=== PATIENT | male | born 1980 | race African-American/Black ===

== ENCOUNTER 2018-05-14 19:51 | Emergency (ER) | payer BC, OTHER ==
[~2018-05-14] VITALS: Ht 185.4 cm; Wt 104.3 kg
[2018-05-14 20:04] VITALS: BP 137/76
[2018-05-14] MEDS ORDERED: ACETAMINOPHEN 500 MG TABLET PO ONE (20:30)
[2018-05-14] MEDS ORDERED: ONDANSETRON ODT 4 MG TAB.RAPDIS. PO ONE (20:30)
[2018-05-14] MEDS ORDERED: IBUPROFEN 400 MG TABLET. PO ONE (20:30)
[2018-05-14 20:56] LABS: INFLUENZA A PATIENT NEGATIVE (NEGATIVE); INFLUENZA B PATIENT NEGATIVE (NEGATIVE)
--- NOTE | 2018-05-14 21:56 | PHYS DOC ---
Past Medical History Past Medical History: No Pertinent History (ERIBERTO SMALLWOOD APRN) Past Surgical History: No Surgical History (ERIBERTO SMALLWOOD APRN) Alcohol Use: Occasionally Drug Use: None (ERIBERTO SMALLWOOD APRN) Adult General Chief Complaint Chief Complaint: COUGH HPI HPI Patient is a 38 year old male with no significant medical history who presents today to the ED complaining of fever, body aches, chills, symptoms began yesterday, he states he was seen at urgent care and was diagnosed with influenza , he states he was started on Tamiflu. He states he would like to be checked to make sure he doesn't have pneumonia today. (ERIBERTO SMALLWOOD APRN) Review of Systems Review of Systems Constitutional: Reports fever, body aches Eyes: Denies change in visual acuity, redness, or eye pain [] HENT: Denies nasal congestion or sore throat [] Respiratory: Reports cough, denies shortness of breath [] Cardiovascular: No additional information not addressed in HPI [] GI: Denies abdominal pain, nausea, vomiting, bloody stools or diarrhea [] : Denies dysuria or hematuria [] Musculoskeletal: Denies back pain or joint pain [] Integument: Denies rash or skin lesions [] Neurologic: Denies headache, focal weakness or sensory changes [] All other systems were reviewed and found to be within normal limits, except as documented in this note. (ERIBERTO SMALLWOOD APRN) Current Medications Current Medications Current Medications Medications (Trade) Dose Ordered Sig/Ruth Start Time Stop Time Status Last Admin Dose Admin Acetaminophen (Tylenol) 1,000 mg 1X ONCE 05/14/18 20:30 05/14/18 20:45 DC 05/14/18 20:49 1,000 MG Ibuprofen (Motrin) 800 mg 1X ONCE 05/14/18 20:30 05/14/18 20:45 DC 05/14/18 20:48 800 MG Ondansetron HCl (Zofran Odt) 4 mg 1X ONCE 05/14/18 20:30 05/14/18 20:45 DC 05/14/18 20:48 4 MG (TADEO MOLINA DO) Allergies Allergies Allergies Coded Allergies Type Severity Reaction Last Updated Verified hydrocodone Allergy Intermediate Nausea 05/14/18 Yes (TADEO MOLINA DO) Physical Exam Physical Exam Constitutional: Well developed, well nourished, no acute distress, non-toxic appearance. [] HENT: Normocephalic, atraumatic, bilateral external ears normal, oropharynx moist, no oral exudates, nose normal. [] Eyes: PERRLA, EOMI, conjunctiva normal, no discharge. [] Neck: Normal range of motion, no tenderness, supple, no stridor. [] Cardiovascular:Heart rate regular rhythm, no murmur [] Lungs & Thorax: Bilateral breath sounds clear to auscultation [] Abdomen: Bowel sounds normal, soft, no tenderness, no masses, no pulsatile masses. [] Skin: Warm, dry, no erythema, no rash. [] Back: No tenderness, no CVA tenderness. [] Extremities: No tenderness, no cyanosis, no clubbing, ROM intact, no edema. [] Neurologic: Alert and oriented X 3, normal motor function, normal sensory function, no focal deficits noted. [] Psychologic: Affect normal, judgement normal, mood normal. [] (ERIBERTO SMALLWOOD APRN) Current Patient Data Vital Signs Vital Signs Date Time Temp Pulse Resp B/P (MAP) Pulse Ox O2 Delivery O2 Flow Rate FiO2 05/14/18 20:04 102.9 87 17 137/76 (96) 97 Room Air 102.9 (TADEO MOLINA DO) Lab Values Laboratory Tests Test 05/14/18 20:17 Influenza Type A Antigen Negative (NEGATIVE) Influenza Type B Antigen Negative (NEGATIVE) (TADEO MOLINA DO) EKG EKG [] (ERIBERTO SMALLWOOD APRN) Radiology/Procedures Radiology/Procedures [] (ERIBERTO SMALLWOOD APRN) Radiology/Procedures PROCEDURE: CHEST PA & LATERAL EXAM: PA and Lateral Views of the Chest DATE: 05/14/2018 8:33 PM INDICATION: ER PATIENT. SHORTNESS OF AIR, WEAKNESS, PRODUCTIVE COUGH WITH PINK SPUTUM. COMPARISON: 01/19/2010 FINDINGS: The heart is not enlarged. Aorta is mildly tortuous. No focal parenchymal airspace opacity. No pleural effusion or pneumothorax. IMPRESSION: 1. No radiographic evidence for acute cardiopulmonary process. Electronically signed by: David Liang MD (05/15/2018 12:08 AM) [facility] (TADEO MOLINA DO) Course & Med Decision Making Course & Med Decision Making Pertinent Labs and Imaging studies reviewed. (See chart for details) This is a 38-year-old male patient presenting to the ED today with flulike symptoms including fever or body aches chills and a cough, symptoms began yesterday, patient was seen at urgent care, was started on Tamiflu. He is requesting chest x-ray to make sure he doesn't have pneumonia. He states they checked him for strep yesterday and did a flu swab which were negative. He is currently on Tamiflu. Chest x-ray interpreted by Dr. Molina is negative for any acute findings. Temperature 102.9 on arrival to the ED. Patient is in no distress. He was given Tylenol and Motrin in the ED. He requested Jell-O which I gave him and he tolerated he was discharged to home and instructed to continue taking the Tamiflu until completed. Given prescription for Zofran as needed. Encouraged to take antipyretics as needed for fever or pain. Instructed to push fluids. Rest, maintain good hand hygiene. (ERIBERTO SMALLWOOD APRN) Dragon Disclaimer Dragon Disclaimer This electronic medical record was generated, in whole or in part, using a voice recognition dictation system. (ERIBERTO SMALLWOOD APRN) Departure Departure Impression: Primary Impression: Fever Additional Impressions: Cough Viral illness Disposition: HOME, SELF-CARE Condition: STABLE (was an elderly he is in pain he is) Referrals: NO PCP (PCP) Follow-up with your doctor in one week Patient Instructions: Cough, Adult, [id number], Fever, Adult Additional Instructions: You were evaluated in the emergency room with a viral-like symptoms. We highly encourage you to continue taking the Tamiflu until completed. Viral illnesses run their own course typically. Please push fluids. Maintain good hand hygiene. Try to rest as much as you can. Follow-up with your doctor in the course of next week. Scripts Hydrocodone/Chlorphen Polis (HYDROCODONE-CHLORPHENIRAM SUSP) 5 Ml Shaista.[email or web address].[id number] 5 ML PO PRN Q12HR PRN for COUGH, #80 ML 0 Refills Prov: ERIBERTO SMALLWOOD APRN 05/14/18 Attending Signature Attending Signature I have reviewed the PA/LABORER SAWMILL's note and plan of care. I was available for consultation as needed during the patient's visit in the emergency department. I agree with the clinical impression, plan, and disposition. (TADEO MOLINA DO) Problem Qualifiers Primary Impression: Fever Fever type: unspecified Qualified Codes: R50.9 - Fever, unspecified MUTUNGAERIBERTO BERGER May 14, 2018 21:56 TADEO MOLINA DO May 18, 2018 04:47
[2018-05-14] MEDS ORDERED: HYDR5SUS PO (22:09)
--- NOTE | 2018-05-15 00:11 | RAD ---
EXAM: PA and Lateral Views of the Chest DATE: 05/14/2018 8:33 PM INDICATION: ER PATIENT. SHORTNESS OF AIR, WEAKNESS, PRODUCTIVE COUGH WITH PINK SPUTUM. COMPARISON: 01/19/2010 FINDINGS: The heart is not enlarged. Aorta is mildly tortuous. No focal parenchymal airspace opacity. No pleural effusion or pneumothorax. IMPRESSION: 1. No radiographic evidence for acute cardiopulmonary process. Electronically signed by: David Liang MD (05/15/2018 12:08 AM) [facility]
== END 2018-05-14 22:15 | disposition home or self-care (01) ==
LOC: ER 19:51
DX: R50.9 Fever, unspecified (principal); R05 Cough; M79.18 Myalgia, other site; B33.8 Other specified viral diseases; Z88.5 Allergy status to narcotic agent
CPT/HCPCS: 71046; 87804; 99284; Q0162